=== PATIENT | male | born 2000 | race Caucasian/White ===

== ENCOUNTER 2019-07-23 08:40 | Emergency (ER) | payer SELFPAY ==
[2019-07-23] MEDS ORDERED: Al Hydrox/Mg Hydrox/Simet LIQ* 30 ML UDC PO ONE (09:23)
--- NOTE | 2019-07-23 09:32 | ED ---
Abdominal Pain/Male - HPI Summary HPI Summary: This patient is a 18-year-old otherwise healthy obese male presenting to the ED with epigastric pain. He states he has had this in the past, has been worked up and was diagnosed with gastritis versus ulcer. He did not follow-up with GI as he was supposed to. He states he used to be on omeprazole which improved his symptoms, however he discontinued this medication and symptoms resumed. He endorses worsening pain after eating. He states his diet is not good and he eats a lot of acidic foods. Patient is a nonsmoker. No soda use. He has not tried any [id number] medications for relief. He denies any chest pain or shortness of breath. He denies any fevers, sweats, chills. He is eating and drinking okay still. He has no significant past medical history other than this epigastric pain which he has had intermittently since last year. Medications and allergies reviewed. - History of Current Complaint Chief Complaint: EDAbdPain Stated Complaint: STOMACH PAIN PER PT Time Seen by Provider: 07/23/19 08:59 Hx Obtained From: Patient Onset/Duration: Sudden Onset Timing: Constant Severity Initially: Moderate Severity Currently: Moderate Pain Intensity: 6 Pain Scale Used: 0-10 Numeric Location: Epigastric Radiates: No Character: Burning, Cramping Aggravating Factor(s): Nothing Alleviating Factor(s): Nothing Associated Signs And Symptoms: Positive: Negative - Allergies/Home Medications Allergies/Adverse Reactions: Allergies Allergy/AdvReac Type Severity Reaction Status Date / Time No Known Allergies Allergy Verified 07/23/19 08:49 PMH/Surg Hx/FS Hx/Imm Hx Previously Healthy: Yes Endocrine/Hematology History: Denies: Hx Anticoagulant Therapy Respiratory History: Denies: Hx Asthma - Immunization History Hx Pertussis Vaccination: No Immunizations Up to Date: Yes Infectious Disease History: No Infectious Disease History: Denies: Traveled Outside the [place] in Last 30 Days - Family History Known Family History: Positive: Non-Contributory - Social History Occupation: Employed Full-time Lives: With Family Alcohol Use: Occasionally Hx Substance Use: No Substance Use Type: Reports: None Smoking Status (MU): Never Smoked Tobacco Review of Systems Negative: Fever, Chills, Fatigue, Skin Diaphoresis Negative: Dental Pain, Sore Throat Negative: Palpitations, Chest Pain Negative: Shortness Of Breath, Cough Positive: Abdominal Pain - epigastric pain Genitourinary: Negative Positive: no symptoms reported, see HPI Negative: Arthralgia, Myalgia Skin: Negative All Other Systems Reviewed And Are Negative: Yes Physical Exam Triage Information Reviewed: Yes Vital Signs On Initial Exam: Initial Vitals Temp Pulse Resp BP Pulse Ox 98.1 F 88 19 151/71 97 07/23/19 08:47 07/23/19 08:47 07/23/19 08:47 07/23/19 08:47 07/23/19 08:47 Vital Signs Reviewed: Yes Appearance: Positive: Well-Appearing, Well-Nourished Skin: Positive: Warm, Skin Color Reflects Adequate Perfusion Head/Face: Positive: Normal Head/Face Inspection Eyes: Positive: EOMI, ANGIE, Conjunctiva Clear Neck: Positive: Supple, No Lymphadenopathy Respiratory/Lung Sounds: Positive: Clear to Auscultation, Breath Sounds Present Cardiovascular: Positive: RRR, Pulses are Symmetrical in both Upper and Lower Extremities Abdomen Description: Positive: Other: - epigastric pain - nonradiating Neurological: Positive: Sensory/Motor Intact, Speech Normal Psychiatric: Positive: Affect/Mood Appropriate AVPU Assessment: Alert Procedures - Sedation Patient Received Moderate/Deep Sedation with Procedure: No Diagnostics - Vital Signs Vital Signs Temp Pulse Resp BP Pulse Ox 07/23/19 08:47 98.1 F 88 19 151/71 97 - Laboratory Lab Statement: Any lab studies that have been ordered have been reviewed, and results considered in the medical decision making process. Abdominal Pain Male Course/Dx - Course Course Of Treatment: This patient is evaluated for epigastric pain which is nonradiating. He states pain has resolved since he arrived to the hospital. He states his pain was approximately an 8/10 this morning. He was diagnosed with gastric ulcers in the past, however has never had an endoscopy and has never followed up with GI. Discussed treatment options with the patient. His symptoms resolved with omeprazole in the past, however he discontinued some medication. He is given Maalox plus in the ED. He will be given a prescription for Maalox plus as well as omeprazole. Follow-up to GI is given. - Diagnoses Differential Diagnosis/HQI/PQRI: Other - gastritis, ulcers Provider Diagnoses: Epigastric pain Discharge ED - Sign-Out/Discharge Documenting (check all that apply): Patient Departure - Discharge Plan Condition: Stable Disposition: HOME Prescriptions: Al Hydrox/Mg Hydrox/Simet LIQ* [Maalox Plus*] 30 ml PO Q4H PRN #1 bottle PRN Reason: Pain - Mild Omeprazole 40 mg PO DAILY #30 capsule. Patient Education Materials: Diet for Stomach Ulcers and Gastritis (ED), Epigastric Pain (ED) Referrals: Albert Hawk MD [Medical Doctor] - No Primary Care Phys,NOPCP [Primary Care Provider] - Additional Instructions: Omeprazole once daily Take 30ml maalox up to 6 times daily for breakthrough pain Reduce acid intake no soda, no cigarettes - Billing Disposition and Condition Condition: STABLE Disposition: Home
[2019-07-23 09:49] VITALS: BP 129/87
== END 2019-07-23 09:47 | disposition home or self-care (01) ==
LOC: ED 08:40
DX: R10.13 Epigastric pain (principal)
CPT/HCPCS: 99282; A9270-GY